=== PATIENT | female | born 1955 | race Caucasian/White ===

== ENCOUNTER 2020-07-07 11:11 | Emergency (ER) | payer MEDICARE, OTHER, SELFPAY ==
--- NOTE | ~2020-07-07 | XR_ITS ---
EXAMINATION: XR hand RT min 3V DATE: 07/07/2020 11:47 INDICATION: Right hand injury. TECHNIQUE: 3 views of right hand were obtained. COMPARISON: Right wrist radiographs 11/17/2019 FINDINGS: Bone alignment is normal. There is a nondisplaced stellate fracture of diaphysis of fifth m etacarpal. Osteopenia is noted. Joint spaces are normal. IMPRESSION: 1. Nondisplaced stellate fracture of diaphysis of fifth metacarpal. Reviewed, dictated and finalized at location A. [employer]
[2020-07-07 11:28] VITALS: BP 131/75; PULSE 82; RESP 14; TEMP 36.3; O2SAT 97
--- NOTE | 2020-07-07 11:55 | ED.UPPEXIN ---
HPI - Extremity Injury (Upper) General Chief Complaint: Extremity Injury, Upper Stated Complaint: rt hand inj Time Seen by Provider: 07/07/20 11:35 Source: patient, RN notes reviewed and old records reviewed Mode of arrival: ambulatory Limitations: no limitations History of Present Illness HPI narrative: 65 year old female who [facility] with complaints of pain and dorsal bruising to her right hand for the past 3 days.. Patient states that she hit her right hand accidently on the edge of the kitchen counter and heard a crackling sound. Patient has purchased a hand and wrist splint and she is wearing this to her right hand which she states has helped her discomfort. Patient has strong pulse to right radial area with brisk capillary refill to finger nails, denies any tingling or numbness.Patient has noted bruising and swelling to the dorsal medial area of hand. MD complaint: injury to: right, hand and finger Onset (ago): day(s) (3) Other injuries: none Handedness: right Place: home Associated symptoms: heard/felt popping sensation Treatments prior to arrival: splint Related Data Home Medications Medication Instructions Recorded Confirmed cholecalciferol (vitamin D3) 125 125 mcg PO DAILY 11/18/19 07/07/20 mcg/mL (5,000 unit/mL) oral drops cholecalciferol (vitamin D3) 50 50 mcg PO DAILY 11/18/19 07/07/20 mcg (2,000 unit) tablet magnesium 200 mg tablet 400 mg PO DAILY tablet 11/18/19 07/07/20 pravastatin 10 mg tablet 10 mg PO DAILY 11/18/19 07/07/20 escitalopram oxalate 20 mg PO DAILY 07/07/20 07/07/20 Allergies Allergy/AdvReac Type Severity Reaction Status Date / Time morphine AdvReac Unknown Hallucinati Verified 07/07/20 11:37 ng Review of Systems Review of Systems: Narrative: CONSTITUTIONAL: Denies fever, chills, or sweats. EYES: Denies visual changes, redness, or discharge. ENT: Denies rhinorrhea, congestion, sore throat, or otalgia. CARDIOVASCULAR: Denies chest pain, palpitations, or edema. RESPIRATORY: Denies cough or dyspnea. GASTROINTESTINAL: Denies abdominal pain, nausea, vomiting, or diarrhea. GENITOURINARY: Denies dysuria or hematuria. SKIN: Denies rash or itching. MUSCULOSKELETAL: Denies back pain, positive for pain to the medial aspect of her right hand with point tenderness to mid aspect of dorsal mayer. NEUROLOGIC: Denies headache, numbness, or weakness. PSYCHIATRIC: Positive history of anxiety or depression. All systems reviewed & are unremarkable except as noted in HPI and below PMFSH Past Medical History Medical History (Updated 07/10/20 @ 11:56 by Nasreen Funk NP) Constipation Fracture of right foot High cholesterol Seasonal allergies Vision abnormalities Weight gain Surgical History Surgical History (Updated 07/10/20 @ 11:55 by Nasreen Funk NP) History of bladder surgery History of hysterectomy Family History Family History Other Arthritis Diabetes mellitus Heart disease Hypertension Kidney disease Nerve disorder Social History Social History (Updated 07/10/20 @ 11:55 by Nasreen Funk NP) Smoking status: Former smoker Smoking end date: 04/27/04 Alcohol intake: current Substance use: never Living arrangements: with family Gender identity (if verbalized by the patient): Female Comments At time of signature, agree with nursing past medical, surgical, social and family history. There is no relevant family history pertinent to the presenting complaint Exam Narrative: Exam Narrative: GENERAL: Well-appearing, well-nourished, and in no acute distress. HEAD: Normocephalic, atraumatic. EYES: PERRLA and EOMI. ENT: Nares clear, no rhinorrhea or epistaxis. Mucous membranes moist. NECK: Supple.no lymphadenopathy CHEST: Clear to auscultation. No respiratory distress.SAO2 97% on room air HEART: Regular rate and rhythm. No murmur heard. Normal peripheral pulses. ABDOMEN: Soft, non
== END 2020-07-07 12:25 | disposition home or self-care (01) ==
PROVIDERS: Emergency Provider Registered Nurse; PCP Nurse Practitioner Family
DX: S62.306A Unspecified fracture of fifth metacarpal bone, right hand, initial encounter for closed fracture (principal); W22.09XA Striking against other stationary object, initial encounter; Z87.891 Personal history of nicotine dependence; E78.00 Pure hypercholesterolemia, unspecified
CPT/HCPCS: 73130; 99213; 99214; G0463